=== PATIENT | male | born 1950 | race Caucasian/White ===

== ENCOUNTER → 2017-06-20 | Outpatient (CLI) | payer OTHER ==
[2015-02-18 06:30] VITALS: BP 108/65
--- NOTE | 2017-06-20 10:50 | CT ---
HISTORY: Un steady gait Study: CT head without contrast Comparison: None Technique: Axial noncontrast images with coronal and sagittal reformats. Dose reduction procedures we re used with mA/kv adjusted for body size. Findings: The ventricles are normal in size shape and position. Mild age-related cortical atrophy is present. N o cerebellar atrophy is identified. There is no definite evidence for recent or remote CVA, hemorrhag e, mass lesion, or extra-axial fluid collection. The calvarium is intact. There is opacification of t he left sphenoid sinus likely inflammatory in origin. IMPRESSION: No acute intracranial abnormality Mild age-related cortical atrophy Opacification of the left sphenoid sinus likely inflammatory in origin Reported By:
== END ==
LOC: RAD 09:56
PROVIDERS: ATTEND Internal Medicine
DX: M79.1 Myalgia (principal); R26.89 Other abnormalities of gait and mobility
CPT/HCPCS: 70450